=== PATIENT | male | born 1975 | race Caucasian/White ===

== ENCOUNTER 2018-05-09 12:41 | Emergency (ER) | payer OTHER ==
[2018-05-09 14:07] VITALS: BP 129/83
--- NOTE | 2018-05-09 14:55 | UC ---
Lower Extremity/Ankle HPI - HPI Summary HPI Summary: This patient is a 43 year old male presenting to [facility] [place] a chief complaint of right ankle pain since 2 days ago. Patient states that he fell 2 days ago and twisted his right ankle. He fell forward, hyperextended his foot and has had persistent pain in the mid portion of his foot since. He has trouble with ambulation. The pain is rated 3/10 in severity. Symptoms aggravated by ambulation. Symptoms alleviated by nothing. Patient additionally reports ecchymosis around the right foot. Patient denies any other medical complaints. - History of Current Complaint Chief Complaint: UCLowerExtremity Stated Complaint: ANKLE INJURY Time Seen by Provider: 05/09/18 14:39 Hx Obtained From: Patient Onset/Duration: Lasting Days, Still Present Severity Currently: Mild Pain Intensity: 3 Pain Scale Used: 0-10 Numeric Aggravating Factor(s): Ambulation Alleviating Factor(s): Nothing Able to Bear Weight: Yes - Allergies/Home Medications Allergies/Adverse Reactions: Allergies Allergy/AdvReac Type Severity Reaction Status Date / Time No Known Allergies Allergy Verified 05/09/18 14:07 Home Medications: Home Medications Ibuprofen TAB* [Advil TAB*] 1 tab PO ONCE 05/09/18 [History Confirmed 05/09/18] PMH/Surg Hx/FS Hx/Imm Hx Previously Healthy: Yes Other Endocrine History: Negative: Diabetes Other Cardiovascular History: Negative: Hypertension - Surgical History Surgical History: Yes Surgery Procedure, Year, and Place: Gastric Bypass Sep 2015 - Family History Known Family History: Negative: Hypertension - Social History Alcohol Use: Rare Substance Use Type: None Smoking Status (MU): Never Smoked Tobacco - Immunization History Most Recent Influenza Vaccination: 2014 Most Recent Tetanus Shot: LONG TIME AGO Most Recent Pneumonia Vaccination: NONE Review of Systems Constitutional: Negative - Fever Musculoskeletal: Calf Tenderness, Other: - Right ankle pain, ecchymosis All Other Systems Reviewed And Are Negative: Yes Physical Exam - Summary Physical Exam Summary: Appearance: Well-appearing, Well-nourished Skin: Warm, Dry, No rash Eyes: Normal, PERRL, EOMI, sclera anicteric ENT: Normal Neck: Supple, nontender Respiratory: Clear to auscultation Cardiovascular: S1, S2, no murmur, no rub, no gallop Abdomen: Soft, nontender, no organomegaly Bowel sounds: Present Musculoskeletal: Ecchymosis to right foot/toes, lateral portion. Full ROM intact. Dorior flexion, plantar flexion. No significant pain in ankle with palpation. Neurological: Normal, A&Ox3, cranial nerves II-XII WNL, follows commands, gait not tested, sensation intact to pin and light touch Psychiatric: affect normal, behavior appropriate, dressed appropriately, judgment intact Triage Information Reviewed: Yes Vital Signs: Initial Vital Signs Temp 97.9 F 05/09/18 14:04 Pulse 68 05/09/18 14:04 Resp 12 05/09/18 14:04 BP 129/83 05/09/18 14:04 Pulse Ox 98 05/09/18 14:04 Diagnostics - Radiology Foot XR Xray Interpretation: Positive (See Comments) - Foot XR reveals, per radiologist , IMPRESSION: No Evidence for Fracture. On second review there appears to be a nondisplaced fracture of the distal aspect of the cuboid bone extending to the distal articular surface consistent with a nondisplaced intra-articular fracture. physician has reviewed this radiology report. Radiology Interpretation Completed By: Radiologist Ankle XR Xray Interpretation: Positive (See Comments) - Ankle XR reveals, per radiologist , IMPRESSION: Soft Tissue swelling. No Fracture is seen. physician has reviewed this radiology report. Radiology Interpretation Completed By: Radiologist Lower Extremity Course/Dx - Course Course Of Treatment: This patient is a 43 year old male presenting to [facility] [place] with a chief complaint of right ankle pain since 2 days ago. Patient states that he fell 2 days ago and twisted his right ankle. Foot XR and Ankle XR ordered. Cuboid fracture of right foot noted. In the course the patient was given Edwin Wrap and Crutches. Patient will be discharged with Edwin wrap and crutches. Patient will be dx with cuboid fracture. The patient is agreeable with this plan. - Differential Dx/Diagnosis Provider Diagnoses: Cuboid Fracture of Right foot Discharge - Sign-Out/Discharge Documenting (check all that apply): Patient Departure All imaging exams completed and their final reports reviewed: Yes - Discharge Plan Condition: Good Disposition: HOME Patient Education Materials: Foot Fracture in Adults (ED) Referrals: Benjamin Sandoval MD [Medical Doctor] - Pablo Hamm MD [Primary Care Provider] - - Attestation Statements Document Initiated by Scribe: Yes Documenting Scribe: Macario Gutierrez Provider For Whom Scribe is Documenting (Include Credential): Dallin Cooley MD Scribe Attestation: Macario Sarkar, scribed for Dallin Cooley MD on 05/09/18 at 1545.
--- NOTE | 2018-05-09 15:10 | RAD ---
INDICATION: Right ankle injury. TECHNIQUE: 3 views of the right ankle were obtained. FINDINGS: Soft tissue swelling is noted along the anterolateral aspect of the ankle. No fracture is seen. Joint spaces appear maintained. IMPRESSION: SOFT TISSUE SWELLING, NO FRACTURE IS SEEN.
--- NOTE | 2018-05-09 15:11 | RAD ---
INDICATION: Right foot injury. TECHNIQUE: 3 views of the right foot were obtained. FINDINGS: The bones are in normal alignment. No fracture is seen. Joint spaces appear maintained. IMPRESSION: NO EVIDENCE FOR FRACTURE.
== END 2018-05-09 16:20 | disposition home or self-care (01) ==
LOC: UCEAST 12:41
DX: S92.211A Displaced fracture of cuboid bone of right foot, initial encounter for closed fracture (principal); W19.XXXA Unspecified fall, initial encounter; X50.1XXA Overexertion from prolonged static or awkward postures, initial encounter; Y92.9 Unspecified place or not applicable
CPT/HCPCS: 99213; G0463